=== PATIENT | female | born 1960 | race Caucasian/White ===

== ENCOUNTER → 2022-02-25 | Outpatient (CLI) | payer OTHER ==
--- NOTE | 2022-02-25 12:23 | MM ---
Reason for Exam: Screening (asymptomatic). Baseline mammogram. Patient History: Menarche at age 15. First Full-Term at age 20. Postmenopausal. 2003, Bilateral Implants. Sister had breast cancer. Risk Values: Soheila 5 year model risk: 2.7%. NCI Lifetime model risk: 11.4%. Prior Study Comparison: Patient's first Mammogram. No prior studies available for comparison. Tissue Density: There are scattered fibroglandular densities. Findings: Analyzed By CAD. There is no suspicious group of microcalcifications. Bilateral breast implants. Asymmetry demonstrated within the left breast on the CC view centrally posterior depth. Overall Assessment: Incomplete: need additional imaging evaluation, BI-RAD 0 Management: Diagnostic Mammogram of the left breast. A clinical breast exam by your physician is recommended on an annual basis and results should be correlated with mammographic findings. [facility] will attempt to contact patient to return for supplemental views and ultrasound if indicated. Electronically signed and approved by: Valdez Gamboa D.O.
== END | disposition home or self-care (01) ==
LOC: RADMAMWWP 10:54
PROVIDERS: ATTEND Internal Medicine
DX: Z12.31 Encounter for screening mammogram for malignant neoplasm of breast (principal); Z78.0 Asymptomatic menopausal state; Z80.3 Family history of malignant neoplasm of breast
CPT/HCPCS: 77063; 77067

== ENCOUNTER → 2022-02-28 | Outpatient (CLI) | payer OTHER ==
--- NOTE | 2022-02-28 09:56 | MM ---
Reason for Exam: Additional evaluation requested from abnormal screening. Last screening mammogram was performed less than 1 month ago. Patient History: Menarche at age 15. First Full-Term at age 20. Postmenopausal. 2003, Bilateral Implants. Sister had breast cancer. Risk Values: Soheila 5 year model risk: 2.7%. NCI Lifetime model risk: 11.4%. Prior Study Comparison: 02/25/2022 Bilateral MG 3D screening mammo w/cad, [facility]. Tissue Density: Left: There are scattered fibroglandular densities. Findings: Analyzed By CAD. A 5 mm focal asymmetric density persists roughly 4 cm distance from nipple on CC view on spot image just medial to the level of nipple. It is not clearly seen on true lateral image. Overall Assessment: Incomplete: need additional imaging evaluation, BI-RAD 0 Management: Diagnostic Breast Ultrasound of the left breast. Targeted ultrasound now. Electronically signed and approved by: Ritchie Almanzar M.D.
--- NOTE | 2022-02-28 10:25 | USB ---
Reason for Exam: Additional evaluation requested from abnormal screening. Patient History: Menarche at age 15. First Full-Term at age 20. Postmenopausal. 2003, Bilateral Implants. Sister had breast cancer. Risk Values: Soheila 5 year model risk: 2.7%. NCI Lifetime model risk: 11.4%. Technique: Method: Targeted. Prior Study Comparison: 02/25/2022 Bilateral MG 3D screening mammo w/cad, [facility]. Findings: The lower inner quadrant of the left breast, the axilla of the left breast and the retroareolar of the left breast were scanned. Targeted ultrasound shows a 4 x 4 by 5 mm benign-appearing thin-walled cyst at 6:00 position 3 cm distance from nipple which is believed to correspond to area of concern on mammogram. Deeper breast implant is incidentally noted. Overall Assessment: Benign, BI-RAD 2 Management: Screening Mammogram of both breasts in 1 year. Patient told the findings and recommendations at time of dictation. Electronically signed and approved by: Ritchie Almanzar M.D.
== END | disposition home or self-care (01) ==
LOC: RADMAMWWP 09:25
PROVIDERS: ATTEND Internal Medicine
DX: R92.8 Other abnormal and inconclusive findings on diagnostic imaging of breast (principal); Z78.0 Asymptomatic menopausal state; Z80.3 Family history of malignant neoplasm of breast
CPT/HCPCS: 77065

== ENCOUNTER → 2022-07-10 | Outpatient (CLI) | payer OTHER ==
[2022-07-10 09:39] LABS: African American GFR (CKD) >90 (>60 ml/min/1.73 sqM); Blood Urea Nitrogen 13 mg/dL (7-17); Non-African American GFR(CKD) 82 (>60 ml/min/1.73 sqM)
--- NOTE | 2022-07-10 18:14 | CT ---
EXAMINATION TYPE: CT ChestAbdPelvis wo/w con DATE OF EXAM: 07/10/2022 INDICATION: Malignant neoplasm of the endometrium COMPARISON: None CT DLP: 3157.80 mGycm CONTRAST: 85 mL Isovue 300. TECHNIQUE: Axial images at 5 mm thick sections. Reconstructed images in the coronal plane. Delayed images through the kidneys. Pre and postcontrast imaging is performed. FINDINGS: CT CHEST: Bilateral breast prostheses are present. Portion of the thyroid visualized is normal. No suspicious lung nodules or focal infiltrates are present. No enlarged mediastinal or hilar adenopathy is evident. The ascending aorta diameter at the level of the main pulmonary artery is 3.2 cm. The main pulmonary artery diameter at the bifurcation is 2.[address] ABDOMEN: Anterior abdominal wall hernia superior to the umbilicus containing mesenteric fat is pre sent. Liver: There is mild fatty infiltration within the liver. Spleen: Normal Pancreas: Normal Adrenal glands: The adrenal glands are normal. Gallbladder: Normal Kidneys: No masses are evident. No hydronephrosis is present. No cysts are present. Delayed images were obtained through the kidneys, which remain unremarkable. Aorta: Vascular calcification is within the aorta. Inferior vena cava: Normal. CT PELVIS: Loops of bowel within the abdomen and pelvis are normal. Scattered diverticuli within the sigmoid col on. There are loops of bowel which are incompletely distended or lack oral contrast limiting their evaluation. Appendix: Normal as visualized. Urinary bladder: Normal. Genitourinary structures: Uterus not present. Adnexa appear normal. Osseous structures: No suspicious lytic or sclerotic lesions. Lymphadenopathy: There is a 1.2 cm left inguinal lymph node. Additional scattered inguinal lymphaden opathy is present. No obturator canal or iliac chain adenopathy. No periaortic or retrocaval adenopat hy. IMPRESSIONS: 1. No suspicious changes for recurrent or obvious metastatic disease. 2. There are couple of prominent lymph nodes in the inguinal regions discussed above. Abnormal adenop athy is not otherwise evident.
== END | disposition home or self-care (01) ==
LOC: RADCTMAIN 09:01
PROVIDERS: ATTEND Obstetrics & Gynecology
DX: C54.1 Malignant neoplasm of endometrium (principal)
CPT/HCPCS: 82565; 84520; 71270; 74178; 36415; Q9967

== ENCOUNTER → 2023-05-26 | Outpatient (CLI) | payer OTHER ==
--- NOTE | 2023-05-27 16:11 | MM ---
Reason for Exam: Screening (asymptomatic). Last mammogram was performed 1 year(s) and 3 month(s) ago. Patient History: Menarche at age 15. First Full-Term at age 20. Postmenopausal. 2003, Bilateral Implants. Sister had breast cancer under age 50. Risk Values: Soheila 5 year model risk: 2.8%. NCI Lifetime model risk: 11.1%. Prior Study Comparison: 02/25/2022 Bilateral MG 3D screening mammo w/cad, [facility]. 02/28/2022 Left MG work up mamm w CAD LT, [facility]. Tissue Density: There are scattered fibroglandular densities. Findings: Analyzed By CAD. Head appears symmetrical. Bilateral breast prostheses are present. No suspicious groups of microcalcifications, spiculated or lobular masses, architectural distortion or other secondary signs of malignancy are mammographically apparent. Overall Assessment: Benign, BI-RAD 2 Management: Screening Mammogram of both breasts in 1 year. A negative mammogram report should not preclude additional follow up of suspicious palpable abnormalities. Patient should continue monthly self breast exam. A clinical breast exam by your physician is recommended on an annual basis and results should be correlated with mammographic findings. Electronically signed and approved by: Jaime Lau D.O. Radiologis
== END | disposition home or self-care (01) ==
LOC: RADMAMWWP 08:18
PROVIDERS: ATTEND Internal Medicine
DX: Z12.31 Encounter for screening mammogram for malignant neoplasm of breast (principal); Z78.0 Asymptomatic menopausal state; Z80.3 Family history of malignant neoplasm of breast
CPT/HCPCS: 77067

== ENCOUNTER → 2023-06-11 | Outpatient (CLI) | payer OTHER ==
[2023-06-11 11:37] LABS: African American GFR (CKD) 84 (>60 ml/min/1.73 sqM); Blood Urea Nitrogen 18 mg/dL (7-17); Non-African American GFR(CKD) 73 (>60 ml/min/1.73 sqM)
--- NOTE | 2023-06-18 12:06 | CT ---
EXAMINATION TYPE: CT ChestAbdPelvis w con CT DLP: 1881 mGycm, Automated exposure control for dose reduction was used. 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 Two-dimensional cor onal and sagittal reconstructions were obtained. Contrast used:100 mL of Isovue 300 with IV Contrast, Oral contrast used: with Oral Contrast Findings: CHEST: LUNGS/ PLEURA: The lung parenchyma appears unremarkable. No pleural effusion or pneumothorax. AIRWAY: Patent and unremarkable. HEART: Size upper normal.. No pericardial effusion. MEDIASTINUM: No gross evidence of adenopathy. VASCULATURE: Aorta shows mild atherosclerotic disease without aneurysm or dissection. Ascending aort a is 2.8 cm. Grossly preserved enhancement of the pulmonary arteries in the limits of the exam. Pulmo nary trunk is 2.6 cm. MUSCULOSKELETAL: No acute osseous abnormalities. Moderate degenerative changes of the spine. SOFT TISSUES/LYMPH NODES: Bilateral breast implants redemonstrated. No chest wall mass or axillary ad enopathy demonstrated. LOWER NECK: No significant findings. Unremarkable thyroid. ABDOMEN: ABDOMEN LIVER: Mild fatty infiltration. No evidence of mass. Portal veins are enhancing. GALLBLADDER AND BILE DUCTS: Gallbladder appears contracted. No evidence of calcified gallstones or bi liary ductal dilatation. PANCREAS: Stable without acute finding SPLEEN: Unremarkable. ADRENAL GLANDS: Stable. No mass.. KIDNEYS AND URETERS: Kidneys enhance symmetrically. There is a stable 3 cm cyst in the posterior left kidney and a stable smaller cyst in the upper pole. PELVIS BLADDER: Unremarkable REPRODUCTIVE: The uterus is surgically absent. Adnexal regions unremarkable. Ovaries themselves are n ot clearly identified. ABDOMEN & PELVIS STOMACH AND BOWEL: Contrast traverses the stomach and small bowel loops without evidence of obstructi on. Normal appendix. Colonic diverticula are present, without signs of inflammation to suggest divert iculitis. PERITONEUM: No evidence of pneumoperitoneum or free fluid. VASCULATURE: Mild atherosclerotic calcifications are present throughout the abdominal aorta and its b ranches. No evidence of AAA. MUSCULOSKELETAL: No acute osseous abnormalities. Moderate disc degeneration changes are present throu ghout the thoracolumbar spine. LYMPH NODES: No enlarged abdominal pelvic nodes. A few mildly prominent superficial bilateral inguina l lymph nodes appear grossly unchanged. SOFT TISSUE/ABDOMINAL WALL: Tiny fat-containing bilateral inguinal hernias. IMPRESSION: 1. Stable exam. No evidence of metastatic disease. 2. Stable mildly enlarged bilateral inguinal lymph nodes, of uncertain cause, may be reactive.
== END | disposition home or self-care (01) ==
LOC: RADCTMAIN 10:57
PROVIDERS: ATTEND Internal Medicine
DX: R59.0 Localized enlarged lymph nodes (principal); C54.9 Malignant neoplasm of corpus uteri, unspecified; Z71.3 Dietary counseling and surveillance
CPT/HCPCS: 82565; 84520; 71260; 74177; 36415; Q9967

== ENCOUNTER → 2023-06-11 | Outpatient (CLI) | payer OTHER | END | disposition home or self-care (01) | LOC: RADCTMAIN 10:50 | PROVIDERS: ATTEND Obstetrics & Gynecology | DX: Z53.9 Procedure and treatment not carried out, unspecified reason (principal) ==

== ENCOUNTER → 2024-06-25 | Outpatient (CLI) | payer SELFPAY ==
--- NOTE | 2024-06-25 09:24 | MM ---
Reason for Exam: Screening (asymptomatic). Last mammogram was performed 1 year(s) and 1 month(s) ago. Patient History: Menarche at age 15. First Full-Term at age 20. Postmenopausal. 2003, Bilateral Implants. Sister had breast cancer under age 50. Risk Values: Soheila 5 year model risk: 2.9%. NCI Lifetime model risk: 10.7%. Prior Study Comparison: 02/25/2022 Bilateral MG 3D screening mammo w/cad, [facility]. 02/28/2022 Left MG work up mamm w CAD LT, [facility]. 05/26/2023 Bilateral MG screening mammo implant/CAD, [facility]. Tissue Density: There are scattered areas of fibroglandular density. Findings: Analyzed By CAD. Bilateral breast implants appear intact. Right breast: There is no suspicious group of microcalcifications or new suspicious mass. Left breast: There is no suspicious group of microcalcifications or new suspicious mass. Overall Assessment: Benign, BI-RAD 2 Management: Screening Mammogram of both breasts in [address] [facility] will attempt to contact patient to return for supplemental views and ultrasound if indicated. Patient should continue monthly self-breast exams. A clinical breast exam by your physician is recommended on an annual basis. This exam should not preclude additional follow-up of suspicious palpable abnormalities. Note on Soheila scores and lifetime risk: 1. A Soheila score greater than 3% is considered moderate risk. If this is the case, consider specialist referral to assess eligibility for a risk reducing agent. 2. If overall lifetime risk for the development of breast cancer is 20% or higher, the patient may qualify for future screening with alternating mammogram and breast MRI. [facility], , 06/25/2024 9:21 AM. Electronically signed and approved by: Jonathan Mcintosh DO
== END | disposition home or self-care (01) ==
LOC: RADMAMWWP 08:40
PROVIDERS: ATTEND Internal Medicine
DX: Z12.31 Encounter for screening mammogram for malignant neoplasm of breast (principal); R92.323 Mammographic fibroglandular density, bilateral breasts; Z78.0 Asymptomatic menopausal state; Z80.3 Family history of malignant neoplasm of breast
CPT/HCPCS: 77063; 77067

== ENCOUNTER → 2024-06-25 | Outpatient (CLI) | payer MEDICARE ==
[2024-06-25 15:13] LABS: ALT 36 U/L (8-44); AST 33 U/L (13-35); Albumin 4.4 g/dL (3.8-4.9); Albumin/Globulin Ratio 1.47 Ratio (1.60-3.17); Alkaline Phosphatase 131 U/L (41-126); BUN/Creat Ratio 12.22 Ratio (12.00-20.00); Calcium 9.8 mg/dL (8.7-10.3); Carbon Dioxide 23.7 mmol/L (21.6-31.8); Chloride 101 mmol/L (96-109); Glucose 151 mg/dL (70-110); Potassium 3.7 mmol/L (3.5-5.5); Sodium 142 mmol/L (135-145); Total Bilirubin 0.4 mg/dL (0.3-1.2); Total Protein 7.4 g/dL (6.2-8.2)
[2024-06-25 16:46] LABS: Urine Creatinine 64.9 mg/dL (28.0-217.0)
[2024-06-25 21:47] LABS: Basophils # (A) 0.04 X 10*3/uL (0.00-0.10); Basophils % (A) 0.5 %; Eosinophils # (A) 0.21 X 10*3/uL (0.04-0.35); Eosinophils % (A) 2.7 %; HCT 46.4 % (37.2-46.3); HGB 14.6 g/dL (12.0-15.0); Lymphocytes # (A) 1.76 X 10*3/uL (0.90-5.00); Lymphocytes % (A) 22.4 %; MCH 28.9 pg (27.0-32.0); MCHC 31.5 g/dL (32.0-37.0); MCV 91.7 FL (80.0-97.0); Mean Platelet Volume 10.3 FL (9.5-12.2); Monocytes # (A) 0.51 X 10*3/uL (0.20-1.00); Monocytes % (A) 6.5 %; NRBC Per 100 WBC 0 X 10*3/uL (0.00-0.01); Neutrophils % (A) 67.6 %; Platelet Count 320 X 10*3/uL (140-440); RBC 5.06 X 10*6/uL (4.10-5.20); RDW 13.2 % (11.5-14.5); WBC 7.84 X 10*3/uL (4.50-10.00)
== END | disposition home or self-care (01) ==
LOC: LABWHC1 09:16
PROVIDERS: ATTEND Family Medicine
DX: E11.65 Type 2 diabetes mellitus with hyperglycemia (principal)
CPT/HCPCS: 36415; 80053; 82043; 82570; 83036; 85025

== ENCOUNTER → 2024-08-16 | Outpatient (CLI) | payer MEDICARE ==
[2024-08-16 11:29] LABS: African American GFR (CKD) 80 (>60 ml/min/1.73 sqM); Blood Urea Nitrogen 12 mg/dL (7-17); Non-African American GFR(CKD) 70 (>60 ml/min/1.73 sqM)
--- NOTE | 2024-08-16 13:43 | CT ---
EXAMINATION TYPE: CT abdomen pelvis w con CT DLP: 1582.5 mGycm, Automated exposure control for dose reduction was used. DATE OF EXAM: 08/16/2024 12:45 PM COMPARISON: CT chest abdomen pelvis 06/11/2023, 07/10/2022 CLINICAL INDICATION:Female, 64 years old with history of C54.1 ENDOMETRIUM CA Z85.42 PERSONAL HX OF U TERUS; Hx of endometrium CA. TECHNIQUE: Standard CT of the abdomen and pelvis following the administration of 100 cc of Isovue 3 00 IV contrast material and oral contrast. Coronal and sagittal reformats were performed. FINDINGS: LOWER CHEST: The visualized lungs are clear. Bilateral breast prosthesis are partially visualized. ABDOMEN LIVER: Diffusely hypoattenuating parenchyma consistent with hepatic steatosis. No focal lesion. Enlar ged measuring 21.2 cm in cc dimension. GALLBLADDER AND BILE DUCTS: Unremarkable. PANCREAS: Unremarkable. SPLEEN: Unremarkable. ADRENAL GLANDS: Unremarkable. KIDNEYS AND URETERS: No evidence of hydronephrosis or renal calculus. The kidneys enhance symmetrical ly. Stable left renal upper pole cysts measuring up to 2.9 cm. Contrast is demonstrated within both c ollecting systems and visualized ureters. Scattered distal colonic diverticula without demonstrated d iverticulitis. PELVIS BLADDER: Unremarkable REPRODUCTIVE: The uterus and ovaries are surgically absent. Vaginal cuff appears unremarkable. ABDOMEN & PELVIS STOMACH AND BOWEL: Stomach and duodenum are unremarkable. No focal bowel wall thickening or surroundi ng inflammatory changes. Enteric contrast reaches the ileocecal junction. The appendix is within norm al limits. No evidence of bowel obstruction. PERITONEUM: No evidence of pneumoperitoneum or free fluid. VASCULATURE: Mild atherosclerotic calcifications are present throughout the abdominal aorta and its b ranches. No evidence of aortic aneurysm. MUSCULOSKELETAL: No acute osseous abnormalities. No aggressive osseous lesion. Mild multilevel degene rative disc disease. LYMPH NODES: No evidence for lymphadenopathy. SOFT TISSUE/ABDOMINAL WALL: Unremarkable IMPRESSION: 1. Postsurgical changes without evidence for recurrence or metastatic disease. 2. Hepatomegaly with diffuse fatty infiltration. 3. Colonic diverticulosis without evidence for acute diverticulitis. [facility], , 08/16/2024 1:41 PM
== END | disposition home or self-care (01) ==
LOC: RADCTMAIN 10:42
PROVIDERS: ATTEND Obstetrics & Gynecology
DX: C54.1 Malignant neoplasm of endometrium (principal); R16.0 Hepatomegaly, not elsewhere classified; K57.30 Diverticulosis of large intestine without perforation or abscess without bleeding; K76.0 Fatty (change of) liver, not elsewhere classified; Z85.42 Personal history of malignant neoplasm of other parts of uterus; Z90.710 Acquired absence of both cervix and uterus; Z98.890 Other specified postprocedural states
CPT/HCPCS: 82565; 84520; 74177; 36415; Q9967